=== PATIENT | male | born 1970 | race Caucasian/White ===

== ENCOUNTER 2016-12-27 20:07 | Inpatient (IN) | payer OTHER ==
[~2016-12-27] VITALS: Ht 180.3 cm; Wt 124.7 kg
[~2016-12-27 20:07] MED LIST: FLOMAX(MONOGRA0.4 MG PO; MOTRIN800 MG PO; PERCOCET 325 MG1 TA2 PO
--- NOTE | 2016-12-27 20:16 | NUR ---
PT TO ED FOR BILATERAL LEG PAIN S/P TWO DAYS AFTER A SPIN CLASS. REPORTING DARK URINE STARTING TODAY.
--- NOTE | 2016-12-27 20:19 | NUR ---
URINE TRIO SENT BY THIS [facility].
--- NOTE | 2016-12-27 20:20 | ED UPPER/LOWER EXTREMITY COMPL ---
History of Present Illness General Chief Complaint: Lower Extremity Problems Stated Complaint: BOTH LEGS PAIN Source: patient Exam Limitations: no limitations Vital Signs & Intake/Output Vital Signs & Intake/Output Vital Signs Date Time Temp Pulse Resp B/P B/P Pulse O2 O2 Flow FiO2 Mean Ox Delivery Rate 12/27 2222 97.0 92 18 144/93 96 Room Air 12/27 2010 98.0 110 18 157/98 100 Room Air Allergies Coded Allergies: No Known Allergies (10/24/15) Reconcile Medications No Known Home Medications Triage Note: PT TO ED FOR BILATERAL LEG PAIN S/P TWO DAYS AFTER A SPIN CLASS. REPORTING DARK URINE STARTING TODAY. Triage Nurses Notes Reviewed? yes Onset: Abrupt Duration: day(s): (2) Timing: multiple episodes today Severity: severe Pain/Injury Location: Bilateral: Knee. Method of Injury: SPIN CLASS Modifying Factors: Worsens With: movement. Associated Symptoms: stiffness HPI: 46-year-old male who presents to the ER for chief complaint of worsening bilateral leg pain since yesterday. 2 days ago he went to his first pain in class. He states he been doing the recumbent bike and wanted to try some different. After the class he felt pain in the legs which slowly got worse yesterday but today while walking he 6. Severe pain pain was significant enough that he couldn't bend down and put socks on. No chest pain or shortness of breath. This afternoon he noticed some dark urine at work. He states he increased his fluid intake to help light and of the urine. History of renal stones. Last lithotripsy was in July and the patient denies any abdominal pain or back pain consistent with kidney stones. Past History Travel History Traveled to [place] past 21 day No Medical History Any Pertinent Medical History? 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 No Review of Systems Review of Systems Constitutional: Denies: chills, fever. EENTM: Reports: no symptoms. Respiratory: Reports: no symptoms. Cardiovascular: Denies: chest pain. Gastrointestinal/Abdominal: Denies: abdominal pain, nausea, vomiting. Genitourinary: Reports: see HPI (DARK URINE). Musculoskeletal: Reports: muscle pain, muscle stiffness. Skin: Reports: no symptoms. Neurological/Psychological: Reports: no symptoms. Hematologic/Endocrine: Denies: bruising, bleeding, polyuria, polydipsia. Immunological: Denies: splenectomy. All Other Systems: Reviewed and Negative Physical Exam Physical Exam General Appearance: well developed/nourished, alert, awake, moderate distress Head: atraumatic Eyes: Bilateral: PERRL, EOMI. Ears, Nose, Throat: normal pharynx, normal ENT inspection, hearing grossly normal Neck: normal inspection, supple Cardiovascular/Respiratory: regular rate/rhythm Peripheral Pulses: 2+ radial (R), 2+ radial (L) Back: normal inspection Leg Left: normal range of motion, normal inspection, tenderness Leg Right: normal range of motion, normal inspection, tenderness Hip Left: normal range of motion, normal inspection Hip Right: normal range of motion, normal inspection Knee Left: normal range of motion, normal inspection Knee Right: normal range of motion, normal inspection Foot Left: normal inspection, normal range of motion Foot Right: normal inspection, normal range of motion Neurologic/Tendon: normal sensation, normal motor functions, normal tendon functions Skin: intact, normal color, warm/dry Lymphatic: no anterior cervical [place] Progress Differential Diagnosis: RHABDOMYOLYSIS, MUSCULOSKELETAL STRAIN Plan of Care: Orders Procedure Date/time Status Regular Diet 12/28 B Active BASIC ELECTROLYTES PLUS BUN&CR 12/28 0600 Active LACTIC ACID 12/28 0048 Active Pathway - chart 12/27 2242 Active House Staff 12/27 224 Active Code Status 12/27 224 Active Patient Data 12/27 2239 Active Admit to inpatient 12/27 221 Active Vital Signs 12/27 2214 Active Code Status 12/27 221 Complete Add-on Test (ER Only) 12/28 2147 Active LACTIC ACID 12/28 2147 Complete EKG 12/27 2144 Active Intake & Output 12/28 2111 Active PARTIAL THROMBOPLASTIN TIME 12/27 2054 Complete PROTHROMBIN TIME 12/27 2054 Complete COMPREHENSIVE METABOLIC PANEL 12/27 2016 Complete CREATINE PHOSPHOKINASE 12/27 2016 Complete CBC WITHOUT DIFFERENTIAL 12/27 2016 Complete CULTURE,URINE 12/27 2014 Active URINALYSIS 12/27 2014 Complete VTE Mechanical Prophylaxis 12/27 UNK Active Current Medications Sig/Jm Start time Last Medication Dose Stop Time Status Admin Sodium Chloride 1,000 ML BOLUS ONE 12/27 2300 UNVr (Normal Saline 0.9%) 12/27 2358 Acetaminophen 650 MG Q6P PRN 12/27 2244 UNVr (Tylenol) Acetaminophen/ 1 TAB Q6P PRN 12/27 2244 UNVr Hydrocodone Bitart (Vicodin) Morphine Sulfate 2 MG Q4P PRN 12/27 2244 UNVr (Morphine) Sodium Chloride 1,000 ML .Q8H 12/27 2244 UNVr (Normal Saline 0.9%) Heparin Sodium 5,000 UNIT Q8 12/27 2241 UNVr (Porcine) Laboratory Tests 12/27/162153: Lactic Acid 1.6 12/27/162054: Anion Gap 11, Estimated GFR 60, BUN/Creatinine Ratio 20.8, Glucose 104 H, Calcium 9.3, Total Bilirubin 0.7, AST 1133 H, ALT 317 H, Alkaline Phosphatase 99, Creatine Kinase > 82537 H, Total Protein 7.5, Albumin 4.4, Globulin 3.1, Albumin/Globulin Ratio 1.4, PT 10.9, INR 1.04, APTT 31, CBC w Diff NO MAN DIFF REQ, RBC 5.09, MCV 88.8, MCH 30.7, RDW 13.6, MPV 8.1, Gran % 76.8 H, Lymphocytes % 16.4 L, Monocytes % 4.8, Eosinophils % 1.8, Basophils % 0.2, Absolute Granulocytes 8.2 H, Absolute Lymphocytes 1.8, Absolute Monocytes 0.5, Absolute Eosinophils 0.2, Absolute Basophils 0, PUBS MCHC 34.6 12/27/162015: Urinalysis LIGHT H, Urine Color DULCE, Urine Clarity CLEAR, Urine pH 6.0, Ur Specific [place] 1.015, Urine Protein 100 H, Urine Ketones NEG, Urine Nitrite NEG, Urine Bilirubin NEG, Urine Urobilinogen 0.2, Ur Leukocyte Esterase TRACE H , Ur Microscopic SEDIMENT EXAMINED, Urine RBC 10-15 H, Urine WBC 3-5 H, Urine Crystals 1+ CA OX H, Urine Bacteria FEW H, Granular Casts 10-15 H, Micro UA Comment , Urine Hemoglobin LARGE H, Urine Glucose NEG Microbiology 12/28 2015 URINE ROUT: Urine Culture - RECD Initial ED EKG: SINUS TACHYCARDIA Departure Departure Time of Disposition: 2215 Disposition: STILL A PATIENT Condition: Stable Clinical Impression Primary Impression: Rhabdomyolysis Referrals: CARLA GROSS DO (PCP/Family) Departure Forms: Customer Survey General Discharge Information Prescriptions: Current Visit Scripts No Known Home Medications Admission Note Spoke With: NELSON CERVANTES,[facility] Documentation of Exam: Documentation of any treatments & extenuating circumstances including Concerns Regarding Discharge (functional status, medication knowledge or non-compliance, living conditions, etc.) that warrant an admission rather than observation: [IV FLUIDS, ]
--- NOTE | 2016-12-27 20:22 | NUR ---
PT TO ROOM 11, AWAITING PROVIDER EVALUATION
--- NOTE | 2016-12-27 20:33 | NUR ---
AT BEDSIDE FOR PT EVALUATION
--- NOTE | 2016-12-27 20:57 | NUR ---
CRITICAL TEST RESULTS [id number] ADDIE CHAVEZ 46 M TESTS AND RESULTS: URINE WBC HIGH Results received and read back by: JENNIFER LOERA Results received date and time: 12/27/162056 The following provider was notified of the results, and read the results back: Notified date and time: 12/27/16 at 2056
[2016-12-27 21:03] LABS: ABSOLUTE BASOPHIL COUNT 0 /CUMM (0.0-0.2); ABSOLUTE EOSINOPHIL COUNT 0.2 /CUMM (0.0-0.7); ABSOLUTE GRANULOCYTE CT 8.2 /CUMM (1.4-6.5); ABSOLUTE LYMPH COUNT 1.8 /CUMM (1.2-3.4); ABSOLUTE MONOCYTE COUNT 0.5 /CUMM (0.10-0.60); BASOPHIL % 0.2 % (0.0-2.0); EOSINOPHIL % 1.8 % (0-5); GRANULOCYTE % 76.8 % (42.2-75.2); HEMATOCRIT 45.2 % (42-52); MEAN CORPUSCULAR HGB 30.7 PG (27.0-31.0); MEAN CORPUSCULAR HGB CONC 34.6 G/DL (33.0-37.0); MEAN CORPUSCULAR VOLUME 88.8 FL (80.0-94.0); MEAN PLATELET VOLUME 8.1 FL (7.4-10.4); PLATELET COUNT 252 /CUMM (130-400); RBC DISTRIBUTION WIDTH 13.6 % (11.5-14.5); RED BLOOD CELL CT 5.09 /CUMM (4.70-6.10); WHITE BLOOD CELL COUNT 10.7 /CUMM (4.8-10.8)
[2016-12-27 22:03] LABS: PT 10.9 SEC (9.4-12.5); PTT 31 SEC (25-37)
--- NOTE | 2016-12-27 22:19 | NUR ---
PT RESTING COMFORTABLY ON STRETCHER AWAITING ADMISSION
--- NOTE | 2016-12-27 22:20 | NUR ---
IN TO [facility]EEVAL
--- NOTE | 2016-12-27 22:36 | NUR ---
HOUSE STAFF AT BEDSIDE TO ROBERT
--- NOTE | 2016-12-27 22:39 | History & Physical ---
JAMIL CERVANTES[place] [place] [facility] [place] 2238: General Information and HPI MD Statement: I have seen and personally examined ADDIE CORCORAN and documented this H&P. The patient is a 46 year old M who presented with a patient stated chief complaint of bilateral leg pain and dark urine. Source of Information: patient, family, old records Exam Limitations: no limitations History of Present Illness: Mr. Corcoran is a 46 y/o M with PMHx of nephrolithiasis s/p lithotripsy and multiple ureteral stent placements who presents with bilateral leg pain x2 days and dark urine. Two days prior to current presentation, patient had a spin class during which he had a 35 minute workout. The following day, he noted that his legs were achy. Today, he noted that his urine is dark in color. Patient reports that for the past several months leading up to current presentation, he has been fairly active, going to the gym a couple of times per week. Of note, he has had a red scaly rash on his bilateral knuckles for the past few years. He has been applying steroid cream without significant improvement. He denies fevers, chills , nausea, vomiting, abdominal pain or dysuria. He denies alcohol or recreational drug use. 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 Psychosocial History Where do you live? Home Smoking Status: Never Smoked ETOH Use: denies use Illicit Drug Use: denies illicit drug use Functional Ability ADLs Independent: dressing, eating, toileting, bathing. Ambulation: independent IADLs Independent: shopping, housework, finances, food prep, telephone, transportation , medication admin. Review of Systems Review of Systems Constitutional: Denies: chills, fever. EENTM: Reports: no symptoms. Cardiovascular: Reports: no symptoms. Respiratory: Denies: cough, short of breath. GI: Denies: abdominal pain, nausea, vomiting. Genitourinary: Reports: see HPI. Denies: dysuria. Musculoskeletal: Reports: muscle pain. Skin: Reports: no symptoms. Neurological/Psychological: Reports: no symptoms. Hematologic/Endocrine: Reports: no symptoms. Immunologic/Allergic: Reports: no symptoms. All Other Systems: Reviewed and Negative Exam & Diagnostic Data Last 24 Hrs of Vital Signs/I&O Vital Signs Date Time Temp Pulse Resp B/P B/P Pulse O2 O2 Flow FiO2 Mean Ox Delivery Rate 12/27 2222 97.0 92 18 144/93 96 Room Air 12/27 2010 98.0 110 18 157/98 100 Room Air Physical Exam General Appearance Alert, Oriented X3, No Acute Distress Skin Gottron's Papules, No Shawl Sign, No Heliotrope Rash HEENT Atraumatic, Mucous Membr. moist/pink Cardiovascular Regular Rate, Normal S1, Normal S2, No Murmurs, Gallops, Rubs Lungs Clear to Auscultation Abdomen Soft, No Tenderness, Positive Bowel Sounds Neurological Strength at 5/5 X4 Ext Extremities No Clubbing, No Cyanosis, No Edema Last 24 Hrs of Labs/Farhad: Laboratory Tests 12/27/162153: Lactic Acid 1.6 12/27/162054: Anion Gap 11, Estimated GFR 60, BUN/Creatinine Ratio 20.8, Glucose 104 H, Calcium 9.3, Total Bilirubin 0.7, AST 1133 H, ALT 317 H, Alkaline Phosphatase 99, Creatine Kinase > 07720 H, Total Protein 7.5, Albumin 4.4, Globulin 3.1, Albumin/Globulin Ratio 1.4, PT 10.9, INR 1.04, APTT 31, CBC w Diff NO MAN DIFF REQ, RBC 5.09, MCV 88.8, MCH 30.7, RDW 13.6, MPV 8.1, Gran % 76.8 H, Lymphocytes % 16.4 L, Monocytes % 4.8, Eosinophils % 1.8, Basophils % 0.2, Absolute Granulocytes 8.2 H, Absolute Lymphocytes 1.8, Absolute Monocytes 0.5, Absolute Eosinophils 0.2, Absolute Basophils 0, PUBS MCHC 34.6 12/27/16 2016: Methadone Screen Pending, Barbiturate Screen Pending, Ur Phencyclidine Scrn Pending, Amphetamines Screen Pending, U Benzodiazepines Scrn Pending, Urine Cocaine Screen Pending, Urine Cannabis Screen Pending, Urinalysis LIGHT H, Urine Color DULCE, Urine Clarity CLEAR, Urine pH 6.0, Ur Specific [place] 1.015, Urine Protein 100 H, Urine Ketones NEG, Urine Nitrite NEG, Urine Bilirubin NEG, Urine Urobilinogen 0.2, Ur Leukocyte Esterase TRACE H, Ur Microscopic SEDIMENT EXAMINED, Urine RBC 10-15 H, Urine WBC 3-5 H, Urine Crystals 1+ CA OX H, Urine Bacteria FEW H, Granular Casts 10-15 H, Micro UA Comment , Urine Hemoglobin LARGE H, Urine Glucose NEG Microbiology 12/28 2015 URINE ROUT: Urine Culture - RECD Assessment/Plan Assessment: 46 y/o M with PMHx of nephrolithiasis s/p lithotripsy and multiple ureteral stent placements who presents with bilateral leg pain x2 days and dark urine. 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 CK elevated to >51124 on initial presentation. Underlying etiology could be dermatomyositis in the presence of Gottron's papules, however no shawl sign or heliotrope rash present on exam. * Admit to general medicine. * Administer 1 L bolus of normal saline. * Hydrate with NS @ 150 cc/hr. * Check urine toxicology. * Check LDH, uric acid and phosphate in the setting of rhabdomyolysis. * Check ESR. * Recheck CK in the AM. * Provide rheumatology referral for workup of dermatomyositis on discharge. #Transaminitis: AST 1133, ALT 317 on admission. Likely secondary to rhabdomyolysis. Patient denies drinking alcohol. * Trend LFTs. * Check GGT. #LEONA: Creatinine 1.3 on admission, increased from baseline of 1.0. Likely secondary to rhabdomyolysis. * Hydrate with normal saline @ 125 cc/hr. * Repeat BMP in the morning. * Avoid NSAIDS. #Anxiety: * Hydroxyzine 10 mg PO QID PRN. Diet: Regular Pain: Morphine 2 mg IV Q4H PRN for severe pain (scale 7-10) Vicodin 1 tab PO Q12H PRN for moderate pain (scale 4-6) Tylenol 650 mg PO Q12H PRN for mild pain (scale 1-3) DVT PPx: HSQ and ALPs CODE: FULL As Ranked By This Provider Problem List: 1. Rhabdomyolysis 2. Dermatomyositis 3. Transaminitis 4. LEONA (acute kidney injury) 5. Anxiety Core Measures/Miscellaneous Acute Coronary Syndrome ACS Diagnosis: No Cerebrovascular Accident CVA/TIA Diagnosis: No Congestive Heart Failure CHF Diagnosis: No Venous Thromboembolism VTE Risk Factors: Acute medical illness, Age > 40, Obesity No [facility] VTE prophylaxis d/t: No contraindications No VTE Pharm Prophylaxis d/t: No contraindications VTE Diagnosis: No VTE Type: NONE VTE Confirmed by (Test): NONE Severe Sepsis Severe Sepsis Present: No Septic Shock Septic Shock Present: No Miscellaneous Documentation Attending [facility] Primary Care Physician: CARLA GROSS DO Patient sees these Specialists N/A Level of Patient Care: General Medicine STEPHANY MONIQUE 12/27/16 2331: General Information and HPI MD Statement: I have seen and personally examined ADDIE CORCORAN and documented this H&P. The patient is a 46 year old M who presented with a patient stated chief complaint of [muscle pain]. Assessment/Plan As Ranked By This Provider Problem List: 1. Rhabdomyolysis Resident Review Statement Resident Statement: examined this patient, discussed with diversity intern, agreed with diversity intern, discussed with family, reviewed EMR data (avail), discussed with nursing , discussed with case mgmt, reviewed images, amended to note Other Findings: 46-year-old gentleman presented with complaint of lower extremity muscles pain. According to patient following 30 minutes of dynamic exercise 2 days ago he started feeling pain and soreness in his both legs(proximal lower extremities). Over time his pain and muscle swelling worsened and patient also noticed darkening of his urine. Patient denied any trauma, new medication, nausea vomiting diarrhea, previous similar episodes,skin rash, drug use, family history of similar episodes. ROS: muscle ache ; PH/ex: HEET: unremarkable, Chest: Normal, S1S2 no murmur, Extremities: Gotron rash, on both hands. Pertinent data AST 1133, ALT 317, CK more than 32,000, troponin negative, potassium 3.9, sodium 138, BUN 27, creatinine 1.3. EKG: Normal sinus rate and rhythm, no acute ST-T segment change, normal axis, no QT, CT, QRS change. Urine Tox: ESR: List of active problems #1 rhabdomyolysis persumebly due to inflammatory mypathies on clinical exam ( dermatomyocytis). metabolite myopathy. The prescence of Gotron Rash and myopathy and Rhabdo is suggestive of dermatomyocytis/polymyocytis. Exercise induced rhabdomyolysis (30 minutes of dynamic training) more suggestive of metabolic myopathy. With the presence of dynamic symptoms including exercise intolerance and myoglobinuria. Metabolic myopathies are sub-divided to mitrochondrial, lipid metabolism defect, glycolytic/glycogenolytic, possible RYR1 mutation, and possible aldolase A or aldolase-1 deficiency. Other potential causes of rhabdomyolysis with lower probability in this patient : Hyperthermia and dehydration( not justifiable with intensity of the exercise), medication(patient is not on any medication that could possibly cause rhabdomyolysis), trauma (no history of trauma). Endocrine myopaties are also need to be ruled out including hypothyroidism and DM. * Admit to general medical floor * Continue IV hydration with normal saline 150 mL per hour * ESR, Phosphate, and Uric Acid, LDH * BEP and LFT, CK, in the am * Rheumatology consult in the am as an outpatient; possible anti-Jo1 Ab and muscle biopsy * Assess biochemical muscle enzymes- LFT and CK in the am * Urine Tox * Folllow TSH and free T4 amd HBA1 C; r/o hypothyroidism and DM #2 Elevated creatinine without renal failure: Possibly due to rhabdomyolysis and myoglobinuria. * Continue IV hydration * Repeat labs in the a.m. Pain pathway-mild to moderate and severe, avoid NSAIDs DVT prophylaxis-heparin 5000 units every 8 hours Full code NELSON CERVANTES, [facility] 12/28/16 0259: Attending MD Review Statement Attending Statement Attending MD Statement: examined this patient, discuss w/resident/PA/YEAST PUMPER, agreed w/resident/PA/YEAST PUMPER, discussed with family Attending Assessment/Plan: 46 yo morbidly obese M with h/o nephrolithiasis s/p lithotripsy and stent placement (Jul 2016), pw bilateral lower extremity pain (both thighs) for the past 2 days, after he did a 35 minute spinning class on Sunday (December 25). He reports, he generally does the stationary bike for exercise, but this is the first time he tried spinning, and did not keep himself adequately hydrated. Today the pain was worse with inability to walk or bend while at work. He also noted dark urine. He denies chest pain, dyspnea, palpitations, nausea, vomiting, abdominal pain, diarrhea or urinary frequency/dysuria. He reports feeling anxious to stay in the hospital overnight, he has a cat at home but someone will take care of the cat. Vitals stable except for tachycardia. Exam remarkable for ?gottron's papules on both hands. Labs: BUN 27, creat 1.3 (baseline 1.0), INR 1.04, glucose 104, T.bili 0.7, AST 1133, ALT 317, lactic acid 1.6, CK > 41638. UA trace LE, RBC 10- 15, WBC 3-5, granular and WBC casts+. EKG: Sinus tachycardia. 1. Acute nontraumatic exertional rhabdomyolysis, with associated LEONA and transaminitis. GM admit, aggressive IV hydration, after 2-3 L fluid boluses, trend CK, LFTs and renal functions, avoid NSAIDs. Check uric acid levels. Monitor electrolytes calcium, potassium and phosphorus. Check urine tox screen. 2. Possible underlying dermatomyositis. Needs outpatient rheumatology eval. 3. Anxiety. Hydroxyzine as needed. DVT ppx Hep SC. Full code.
--- NOTE | 2016-12-27 22:50 | NUR ---
PT BED ASSIGNMENT 210-1
--- NOTE | 2016-12-27 22:52 | NUR ---
PER PT WILL RECIEVE 2ND LITER NS BOLUS AND THEN 125ML/HR LITER PER ORDER.
--- NOTE | 2016-12-27 22:54 | Admission Certification ---
Admission Certification Certification Statement - As attending physician, I certify that at the time of - admission, based on clinical presentation, severity of - symptoms, need for further diagnostic testing and - therapeutic interventions, and risk of adverse outcomes - without in-hospital treatment, in my clinical assessment, - this patient requires an acute hospital stay for a minimum - of two nights or longer. I have also considered psychsocial - factors such as support system, advanced age, financial - issues, cognitive issues, and failed out-patient treatments, - past re-admission history, safety of patient, and lack of - compliance as applicable. Specific rationale supporting this admission is: Acute nontraumatic exertional rhabdomyolysis, acute kidney injury and transaminitis.
--- NOTE | 2016-12-27 23:39 | NUR ---
REPORT GIVEN TO VICKY VILLARREAL
[2016-12-28 00:34] VITALS: BP 160/102
[2016-12-28 01:00] VITALS: BP 152/90
[2016-12-28 06:49] VITALS: BP 132/98
--- NOTE | 2016-12-28 06:59 | PN- Housestaff ---
LAURYN CERVANTES,FIORELLA 12/28/16 0659: Subjective Follow-up For: Bilateral leg pain and dark urine Complaints: anxious about current events Subjective: I followed up with the patient today. He is resting comfortably in his bed, is alert, oriented, not in distress, verified the history, doesn't take any medications other than vitamin supplements, discussed the current events and plan of care, and had no questions at this point of time. His blood pressure has been running slightly on the higher side, otherwise normal vitals. No overnight events. He has been drinking water, and also urinating with unchanged colored urine (ice -tea colored). Of note IV fluid is running at 150 ml per hour. Review of Systems Constitutional: Reports: see HPI. Objective Last 24 Hrs of Vital Signs/I&O Vital Signs Date Time Temp Pulse Resp B/P B/P Pulse O2 O2 Flow FiO2 Mean Ox Delivery Rate 12/28 0649 98.2 91 20 132/98 97 Room Air 12/28 0100 98 152/90 12/28 0034 99.3 100 18 160/102 96 Room Air 12/27 2223 97.0 92 18 144/93 96 Room Air 12/27 2010 98.0 110 18 157/98 100 Room Air Intake & Output 12/28 1600 12/28 0800 12/28 0000 Intake Total 1560 0 Output Total 1300 Balance 260 0 Intake, IV 1200 Intake, Oral 360 0 Output, Urine 1300 Patient 124.738 kg Weight Weight Reported by Patient Measurement Method Physical Exam General Appearance: Alert, Oriented X3, Cooperative, No Acute Distress, obese Other Physical Findings: Physical examnination: General: well nourished obese patient, not in distress Head: Normocephalic, atraumatic Eyes: Pupils normal in size, regular, reacting to light and accommodation, EOM normal Throat/mouth: Moist mucosa Neck: Supple, full range of motion, no thyromegaly Heart: Regular rate, regular rhythm Lung: Normal breath sound bilaterally, Added sound not heard Abd: Soft, non-tender, no distention appreciated Back: Normal range of motion Extremities: Normal knee exam bilaterally, no pedal edema, Distal neurovascular intact Neurologic: Alert, oriented x3, Cranial exam grossly intact, Speech is clear and coherent Skin: Warm and dry, no rash Psychiatric: Calm, cooperative, coherant Current Medications: Current Medications Sig/Jm Start time Last Medication Dose Route Stop Time Status Admin Acetaminophen 650 MG Q12P PRN 12/28 0030 AC PO Acetaminophen 650 MG Q6P PRN 12/27 2244 DC PO Acetaminophen/ 1 TAB Q12P PRN 12/28 003 DC Hydrocodone Bitart PO Acetaminophen/ 1 TAB Q6P PRN 12/27 2244 DC Hydrocodone Bitart PO Heparin Sodium 0 .STK-MED ONE 12/27 230 DC (Porcine) .ROUTE Heparin Sodium 5,000 UNIT Q8 12/27 2241 AC 12/28 (Porcine) SC 0552 Hydroxyzine HCl 10 MG 4 TIMES/DAY PRN 12/28 0315 AC PO Hydroxyzine HCl 10 MG ONCE ONE 12/28 0030 DC 12/28 PO 12/28 003 0036 Melatonin 5 MG .STK-MED ONE 12/28 003 DC PO 12/28 0035 Melatonin 3 MG ONCE ONE 12/280 DC 12/28 PO 12/28 0031 0036 Morphine Sulfate 2 MG Q4P PRN 12/27 2244 AC IV Oxycodone HCl 5 MG Q6-PRN PRN 12/28 0945 UNVr PO Sodium Chloride 1,000 ML BOLUS ONE 12/27 2299 DC 12/27 IV 12/27 2359 2304 Sodium Chloride 1,000 ML .Q4H 12/27 2244 AC 12/28 IV 0552 Sodium Chloride 1,000 ML BOLUS ONE 12/27 2144 DC 12/27 IV 12/27 Last 24 Hrs of Lab/Farhad Results Last 24 Hrs of Labs/Mics: Laboratory Tests 12/28/16 0754: Anion Gap 9, Estimated GFR > 60, BUN/Creatinine Ratio 14.5, Total Bilirubin 0.8, Direct Bilirubin 0.2, AST 1129 H, ALT 325 H, Alkaline Phosphatase 72, Creatine Kinase > 15360 H, Total Protein 6.0 L, Albumin 3.4 L 12/28/16 0048: Lactic Acid Cancelled 12/27/162153: Lactic Acid 1.6 12/27/162054: Anion Gap 11, Estimated GFR 60, BUN/Creatinine Ratio 20.8, Glucose 104 H, Hemoglobin A1c 5.4, Uric Acid 8.0, Calcium 9.3, Phosphorus 4.6 H, Total Bilirubin 0.7, GGT 21, AST 1133 H, ALT 317 H, Alkaline Phosphatase 99, Lactate Dehydrogenase 6542 H, Creatine Kinase > 05118 H, Total Protein 7.5, Albumin 4.4, Globulin 3.1, Albumin/Globulin Ratio 1.4, TSH 2.200, Free T4 1.41, PT 10.9, INR 1.04, APTT 31, CBC w Diff NO MAN DIFF REQ, RBC 5.09, MCV 88.8, MCH 30.7, RDW 13.6, MPV 8.1, Gran % 76.8 H, Lymphocytes % 16.4 L, Monocytes % 4.8, Eosinophils % 1.8, Basophils % 0.2, Absolute Granulocytes 8.2 H, Absolute Lymphocytes 1.8, Absolute Monocytes 0.5, Absolute Eosinophils 0.2, Absolute Basophils 0, PUBS MCHC 34.6, ESR Westergren 18 H 12/27/162015: Urine Opiates Screen < 100.00, Methadone Screen < 40, Barbiturate Screen < 60, Ur Phencyclidine Scrn < 6.00, Amphetamines Screen < 100, U Benzodiazepines Scrn < 85, Urine Cocaine Screen < 50, Urine Cannabis Screen < 5.00, Urinalysis LIGHT H, Urine Color DULCE, Urine Clarity CLEAR, Urine pH 6.0, Ur Specific [place] 1.015, Urine Protein 100 H, Urine Ketones NEG, Urine Nitrite NEG, Urine Bilirubin NEG, Urine Urobilinogen 0.2, Ur Leukocyte Esterase TRACE H, Ur Microscopic SEDIMENT EXAMINED, Urine RBC 10-15 H, Urine WBC 3-5 H, Urine Crystals 1+ [place] OX H, Urine Bacteria FEW H, Granular Casts 10-15 H, Micro UA Comment , Urine Hemoglobin LARGE H, Urine Glucose NEG Microbiology 12/28 2015 URINE ROUT: Urine Culture - RES Assessment/Plan Assessment: 46-year-old male with no past medical history other than bilateral renal stones status post surgery last year, came into the emergency department with bilateral lower extremity pain and dark colored urine on 12/27/2016 after a spinning/heavy workout session. In the ED, he was found to be having dark-colored urine with RBCs in urine, increase in BUN/creatinine being 27/1.3, and CK of >32,000. His CBC was normal and a tox screen was normal as well. With the clinical picture, laboratory reports a provisional diagnosis of rhabdomyolysis was made. He is currently admitted in the general medical floor for the following issues: #Acute kidney injury, secondary to rhabdomyolysis -Given the clinical condition, increase BUN and creatinine of 27/1.3 with unknown baseline, and her creatine kinase level of more than 32,000, the patient clearly has rhabdomyolysis. He received 2 L of normal saline in the emergency department, and night staff/admitting continued IV fluids infusing at 150 mL per hour. This morning's biochemistry and has returned better numbers after hydration with BUN/creatinine at 16/1.1, creatinine kinase still greater than 32 ,000. -Continue monitoring vitals every shift, and as needed -Continue IV hydration, increased rate from 150 mL per hour to 250 mL per hour -Increase oral fluid intake -Continue rechecking BEP, CK -Avoid nephrotoxic drugs -Avoid sternous exercise for now Of note, patient has bilateral lesions over his knuckles, which somewhat looks like dermatomyositis. This can be followed up as an outpatient with her enterprise sales executive. #Transaminitis Initial AST/ALT were 1133/6317, unknown whether this is secondary to rhabdomyolysis. -Trend LFTs, this morning's AST/ALT is 1129/325, better than the previous one [facility], but [facility] is normal and he hasn't had any alcohol since past few (5) years -Will follow #Anxiety -Hydroxyzine 10 mg as needed #Diet regular #DVT prophylaxis with subcutaneous heparin #CODE STATUS full code Problem List: 1. Rhabdomyolysis 2. Transaminitis 3. Anxiety 4. LEONA (acute kidney injury) Pain Ratin Pain Location: - Pain Goal: Pain 4 or less Pain Plan: tylenol and oxycodone for now DC'ed vicodine Tomorrow's Labs & Rationales: CK, LFT, BEP, CBC to follow rhabdomyoloysis, liver status, lytes repletion, and trace the rhabdo.- inflammation. XIN JACKSON MD 12/28/16 1143: Attending MD Review Statement Attending Statement Attending MD Statement: examined this patient, discuss w/resident/PA/STATE MANAGER, agreed w/resident/PA/STATE MANAGER, reviewed EMR data (avail), discussed with nursing, discussed with case mgmt, amended to note Attending Assessment/Plan: Patient seen and examined. Resting comfortably not in any acute distress. Complains of tight cramping. Denies nausea. Denies vomiting. Remains afebrile hemodynamically stable. It appears that his rhabdomyolysis was brought on by his intense exercise. We'll continue hydration aggressively. Increase fluids to 250 mL an hour. Monitor l urine output closely. Monitor CK levels daily. Begin discharge planning once CPK level has improved significantly.
--- NOTE | 2016-12-28 07:17 | PN- Student ---
Subjective Subjective: Source: patient, who is a reliable historian. History of Present Illness: This 46 year-old male with a past medical history of nephrolithiasis s/p lithotripsy and multiple ureteral stent placements who presented to the [facility] ED 12/27/16 with a chief complaint of worsening lower extremity pain bilaterally for 2 days. Pain began after a exercise at a bicycle spin class, and progressively worsened to the point where he could not bend down to put socks on. Patient describes pain as a muscle pain with tenderness. Patient can walk, but states that there is leg pain when walking. Pain is located in the upper medial and lateral thigh region bilaterally. Notes no radiation of pain. Patient took naproxen and oxycodone for pain, which did not help pain (patient had leftover oxycodone from last renal stone). Lower extremity pain is associated with dark-colored urine, which began on day of ED admission. Review of Systems: -Patient denies fevers, chills, chest pain, shortness of breath, abdominal pain, back pain, dysuria. leg swelling. -Denies medication use, illicit drug use, recent trauma. Past Medical History: -Nephrolithiasis s/p lithotripsy and multiple ureteral stent placements. -Dry, scaly skin over knuckles of bilateral hands. Allergies: No known drug allergies. Medications: -Steroid cream prescribed by PCP (Dr. Kenney in [place]), which he uses as needed for dry, scaly skin on knuckles, which he notes helps. -Daily multivitamin. -Denies any other medication use. Family History: -Mother: Type II diabetes. -Maternal grandmother: Type II diabetes. Has , patient does not know cause of . -Patient denies any other family medical history, illnesses, or disorders. Social History: -Denies history of tobacco smoking. -Denies alcohol use. -Denies illicit drug use. 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 Objective Objective: Vitals on ED admission: Vital Signs Date Time Temp Pulse Resp B/P B/P Pulse O2 O2 Flow FiO2 Mean Ox Delivery Rate 12/28 0649 98.2 91 20 132/98 97 Room Air 12/28 0100 98 152/90 12/28 0034 99.3 100 18 160/102 96 Room Air 12/27 2223 97.0 92 18 144/93 96 Room Air 12/27 2010 98.0 110 18 157/98 100 Room Air Patient admitted to general medicine floor: -Given 1L bolus normal saline -Given hydroxyzine 10mg for anxiousness -Given melatonin 3mg for sleep Physical Exam: -General: alert, oriented x3, slightly anxious-appearing, in no acute distress -Head: atraumatic, normocephalic -Eyes: PERRL, EOMI -Mouth: moist mucous membranes, oropharynx without erythema or exudate -Cardiovascular: regular rate and rhythm, S1, S2, no murmurs, rubs, or gallops -Lungs: clear to auscultation bilaterally, good air entry throughout -Abdomen: soft, non-tender, no masses, positive bowel sounds -Back: no CVA tenderness -Extremities: very mild tenderness on palpation of upper thighs bilaterally, no swelling, no clubbing, cyanosis, edema -Neurological: 5/5 strength in all extremities -Skin: dry, scaly skin over knuckles on hands bilaterally, no other rashes present -On IV fluids: normal saline 150cc/hr. Results Results: Pertinent labs on admission: -AST 1133, ALT 317 -Lactate dehydrogenase 6542 -Creatine kinase >32,000 -BUN 27, creatinine 1.3 -Urine toxicology screen: negative UA: high urine proteins, trace leukocyte esterase, high RBCs, high WBCs, granular casts EKG: sinus tachycardia Assessment/Plan Assessment: This is a 46 year-old male with PMH of nephrolithiasis s/p lithotripsy and multiple ureteral stent placements who presented to ED on 12/27/16 with a chief complaint of worsening leg pain bilaterally x2 days and dark urine x1 day. In the ED, patient had AST 1133, ALT 317, lactate dehydrogenase 6542, creatine kinase >32,000, BUN 27, creatinine 1.3. Patient currently states he is doing okay and notes leg pain bilaterally with ambulation. Differential Diagnosis: 1. Rhabdomyolysis: muscle pain, creatine kinase >32,000, and dark urine are all present in this patient. Other manifestations of rhabdomyolysis include hepatic injury, and patient has AST 1133, ALT 317. Patient also has evidence of acute kidney injury with creatinine 1.3 mg/dL. This event could have been triggered by strenous exercise from spin class. Patient denies medication use, illlicit drug use, or trauma/crushing injury. 2. Inflammatory myopathy: patient could have possible myopathy (such as dermatomyositis). Patient has dry, scaly rash on skin of knuckles of hands bilaterally, which could represent Gottron's papules. Inflammatory myopathies can also present with elevated creatine kinase, dark colored urine ( myoglobinuria), and myalgias. However, patient denies any rashes such as a shawl sign or heliotrope rash. Additionally, inflammatory myopathies present with symmetric proximal muscle weakness that develops over weeks to months, while rhabdomyolysis presents abruptly, as it did in this patient. Patient could have rhabdomyolysis with an underlying etiology of an inflammatory myopathy. 3. Cardiac ischemia: although serum creatine kinase rises with a myocardial infarction, patient denies chest pain, and EKG only showed sinus tachycardia. Cardiac ischemic event less likely. Plan: For bilateral upper leg pain: -Patient admitted to general medicine floor with suspected diagnosis of rhabdomyolysis. -Avoids NSAIDs. -Trend LFTs, BMP, creatine kinase. For pain: -Morphine 2mg IV Q4H PRN for severe pain (scale 7-10). -Oxycodone 5mg PO Q6H PRN for moderate pain (scale 4-6). -Acetaminophen 650mg PO Q12H PRN for mild pain (scale 1-3). For acute kidney injury: -Patient given 1L bolus of normal saline. -IV fluids currently at 150cc/hr. Will increase to 250cc/hr. -Trend BMP. -Encourage oral fluid intake. For scaly, dry knuckles on hands bilaterally: -Hydrocortisone cream as needed. -Return to PCP/possible rheumatology referral for further workup on discharge. For anxiety: -Hydroxyzine 10mg PO QID PRN. DVT prophylaxis: -Heparin 5,000 units SC Q8H Diet: regular Francisco Mcdowell MS3
[2016-12-28 15:04] VITALS: BP 140/86
[2016-12-28 22:34] VITALS: BP 132/73
--- NOTE | 2016-12-29 07:02 | PN- Housestaff ---
LAURYN CERVANTES,FIORELLA 12/29/16 0702: Subjective Follow-up For: Bilateral leg pain and dark urine, secondary to rhabdomyolysis Complaints: no complaints Subjective: I followed up and examined the patient today. He is resting comfortably in his bed, not in distress, and offers no complaints, vitals have been stable, no overnight issues. IV fluids as running at 250 mL per hour, patient has no shortness of breath, tachycardia, tachypnea, swelling of legs, and is urinating regularly without problems. Review of Systems Constitutional: Reports: no symptoms. Objective Last 24 Hrs of Vital Signs/I&O Vital Signs Date Time Temp Pulse Resp B/P B/P Pulse O2 O2 Flow FiO2 Mean Ox Delivery Rate 12/29 0742 98.2 90 20 136/97 100 Room Air 12/28 2234 98.4 90 20 132/73 97 Room Air 12/28 1504 97.4 95 20 140/86 96 Room Air Intake & Output 12/29 1600 12/29 0800 12/29 0000 Intake Total 2480 2600 Output Total 750 1350 Balance 1730 1250 Intake, IV 2000 2000 Intake, Oral 480 600 Number 1 Bowel Movements Output, Urine 750 1350 Physical Exam General Appearance: Alert, Oriented X3, Cooperative, No Acute Distress Other Physical Findings: General: well nourished obese patient, not in distress Head: Normocephalic, atraumatic Eyes: Pupils normal in size, regular, reacting to light and accommodation, EOM normal Throat/mouth: Moist mucosa Neck: Supple, full range of motion, no thyromegaly Heart: Regular rate, regular rhythm Lung: Normal breath sound bilaterally, Added sound not heard Abd: Soft, non-tender, no distention appreciated Back: Normal range of motion Extremities: Normal knee exam bilaterally, no pedal edema, Distal neurovascular intact Neurologic: Alert, oriented x3, Cranial exam grossly intact, Speech is clear and coherent Skin: Warm and dry, no rash Psychiatric: Calm, cooperative, coherant Current Medications: Current Medications Sig/Jm Start time Last Medication Dose Route Stop Time Status Admin Acetaminophen 650 MG Q12P PRN 12/28 0030 DC PO Acetaminophen/ 1 TAB Q12P PRN 12/28 003 DC Hydrocodone Bitart PO Heparin Sodium 5,000 UNIT Q8 12/27 2242 AC 12/29 (Porcine) SC 0655 Hydroxyzine HCl 10 MG 4 TIMES/DAY PRN 12/28 0315 AC 12/28 PO 2116 Melatonin 3 MG ONCE ONE 12/28 2114 DC 12/28 PO 12/28 Morphine Sulfate 2 MG Q4P PRN 12/27 2244 AC IV Oxycodone HCl 5 MG Q6-PRN PRN 12/28 0945 AC PO Sodium Chloride 1,000 ML .Q4H 12/27 224 AC 12/29 IV 0654 Last 24 Hrs of Lab/Farhad Results Last 24 Hrs of Labs/Mics: Laboratory Tests 12/29/16 0708: Anion Gap 8, Estimated GFR > 60, BUN/Creatinine Ratio 10.0, Total Bilirubin 0.7, Direct Bilirubin 0.2, AST 905 H, ALT 335 H, Alkaline Phosphatase 68, Creatine Kinase Pending, Total Protein 5.9 L, Albumin 3.3 L Assessment/Plan Assessment: 46-year-old male with no past medical history other than bilateral renal stones status post surgery last year, came into the emergency department with bilateral lower extremity pain and dark colored urine on 12/27/2016 after a spinning/heavy workout session. In the ED, he was found to be having dark-colored urine with RBCs in urine, increase in BUN/creatinine being 27/1.3, and CK of >32,000. His CBC was normal and a tox screen was normal as well. With the clinical picture, laboratory reports a provisional diagnosis of rhabdomyolysis was made. He is currently admitted in the general medical floor for the following issues: #Acute kidney injury, secondary to rhabdomyolysis -Given the clinical condition, increase BUN and creatinine of 27/1.3 with unknown baseline, and her creatine kinase level of more than 32,000, the patient clearly has rhabdomyolysis. He received 2 L of normal saline in the emergency department, and is receiving IV fluids at 250 mL per hour without any signs of fluid overload. His numbers this morning is with BUN 9 and creatinine 0.9, creatinine kinase is still more than 32,000. Of note the machine in the laboratory detects creatinine kinase up to 32,000 only. Further quantification can be done by dilution method. A rough estimate of decrease of 33% of creatine kinase in the last sample when compared to the first sample was informed to me by lab staff today. Will wait for tomorrow's labs. -Continue monitoring vitals every shift, and as needed -Continue IV hydration, at 250 mL per hour -Increase oral fluid intake -Continue rechecking BEP, CK -Avoid nephrotoxic drugs -Avoid sternous exercise for now Of note, patient has bilateral lesions over his knuckles, which somewhat looks like dermatomyositis. This can be followed up as an outpatient with her sanitation truck driver. #Transaminitis Initial AST/ALT were 1133/6317, unknown whether this is secondary to rhabdomyolysis. -Trend LFTs, this morning's AST/ALT is 905/335, better than the previous one -Might check GGT later, but the ALP is normal and he hasn't had any alcohol since past few (5) years -Will follow #Anxiety -Hydroxyzine 10 mg as needed #Diet regular #DVT prophylaxis with subcutaneous heparin #CODE STATUS full code Problem List: 1. Rhabdomyolysis 2. LEONA (acute kidney injury) 3. Dehydration syndrome Pain Ratin Pain Location: - Pain Goal: Pain 4 or less Pain Plan: prn Tomorrow's Labs & Rationales: BEP to replete lytes if necessary, CK, discharge dependant labs is CK XIN JACKSON MD 12/29/16 1209: Attending MD Review Statement Attending Statement Attending MD Statement: examined this patient, discuss w/resident/PA/ROLL INSPECTOR, agreed w/resident/PA/ROLL INSPECTOR, reviewed EMR data (avail), discussed with nursing, discussed with case mgmt, amended to note Attending Assessment/Plan: Patient seen and examined. Resting comfortably not in any acute distress. No issues overnight. Denies leg cramping this morning. Denies nausea vomiting. Ambulating freely around the unit. CPK level remains greater than 32,000. His creatinine level has improved. Recommendations: -Continue IV hydration at 250 mL an hour. -His elevated transaminases are improving. Likely related to his elevated CPK level. Obtain right upper quadrant sonogram to rule out coexisting liver disease. -Avoid hepatotoxic medications. Tylenol has been discontinued -Repeat CPK level and transaminases over the weekend. Monitor renal function.
[2016-12-29 07:42] VITALS: BP 136/97
--- NOTE | 2016-12-29 08:34 | PN- Student ---
Subjective Subjective: Doing well today overall, notes mild left lower abdominal soreness at heparin injection site. Denies fevers, chills, chest pain, shortness of breath, back back, leg pain, dysuria. Current Medications Sig/Jm Start time Last Medication Dose Route Stop Time Status Admin Acetaminophen 650 MG Q12P PRN 12/28 0030 DC PO Acetaminophen/ 1 TAB Q12P PRN 12/28 0030 DC Hydrocodone Bitart PO Heparin Sodium 5,000 UNIT Q8 12/27 224 AC 12/29 (Porcine) SC 0655 Hydroxyzine HCl 10 MG 4 TIMES/DAY PRN 12/28 0315 AC 12/28 PO 2116 Melatonin 3 MG ONCE ONE 12/28 2114 DC 12/28 PO 12/28 Morphine Sulfate 2 MG Q4P PRN 12/27 2244 AC IV Oxycodone HCl 5 MG Q6-PRN PRN 12/28 0945 AC PO Sodium Chloride 1,000 ML .Q4H 12/27 2244 AC 12/29 IV 0654 Objective Objective: Vital Signs Date Time Temp Pulse Resp B/P B/P Pulse O2 O2 Flow FiO2 Mean Ox Delivery Rate 12/29 0742 98.2 90 20 136/97 100 Room Air 12/28 2234 98.4 90 20 132/73 97 Room Air 12/28 1504 97.4 95 20 140/86 96 Room Air Intake & Output 12/29 1600 12/29 0800 12/29 0000 Intake Total 2480 2600 Output Total 750 1350 Balance 1730 1250 Intake, IV 2000 2000 Intake, Oral 480 600 Number 1 Bowel Movements Output, Urine 750 1350 Physical Exam: General: alert, oriented x3, in no acute distress Cardiovascular: regular rate and rhythm, S1, S2, no murmurs, rubs, or gallops Lungs: clear to auscultation bilaterally, good air entry throughout Abdomen: soft, mild tenderness in left lower quadrant at heparin injection site , no masses Back: no CVA tenderness Extremities: no tenderness on palpation of lower extremities; no clubbing, cyanosis, edema On IV fluids: normal saline 250cc/hr Results Results: Laboratory Tests 12/29/16 0708: Anion Gap 8, Estimated GFR > 60, BUN/Creatinine Ratio 10.0, Total Bilirubin 0.7, Direct Bilirubin 0.2, AST 905 H, ALT 335 H, Alkaline Phosphatase 68, Creatine Kinase > 56322 H, Total Protein 5.9 L, Albumin 3.3 L 12/28/16 0754: Anion Gap 9, Estimated GFR > 60, BUN/Creatinine Ratio 14.5, Total Bilirubin 0.8, Direct Bilirubin 0.2, AST 1129 H, ALT 325 H, Alkaline Phosphatase 72, Creatine Kinase > 65255 H, Total Protein 6.0 L, Albumin 3.4 L 12/28/16 0048: Lactic Acid Cancelled 12/27/162153: Lactic Acid 1.6 12/27/162054: Anion Gap 11, Estimated GFR 60, BUN/Creatinine Ratio 20.8, Glucose 104 H, Hemoglobin A1c 5.4, Uric Acid 8.0, Calcium 9.3, Phosphorus 4.6 H, Total Bilirubin 0.7, GGT 21, AST 1133 H, ALT 317 H, Alkaline Phosphatase 99, Lactate Dehydrogenase 6542 H, Creatine Kinase > 79953 H, Total Protein 7.5, Albumin 4.4, Globulin 3.1, Albumin/Globulin Ratio 1.4, TSH 2.200, Free T4 1.41, PT 10.9, INR 1.04, APTT 31, CBC w Diff NO MAN DIFF REQ, RBC 5.09, MCV 88.8, MCH 30.7, RDW 13.6, MPV 8.1, Gran % 76.8 H, Lymphocytes % 16.4 L, Monocytes % 4.8, Eosinophils % 1.8, Basophils % 0.2, Absolute Granulocytes 8.2 H, Absolute Lymphocytes 1.8, Absolute Monocytes 0.5, Absolute Eosinophils 0.2, Absolute Basophils 0, PUBS MCHC 34.6, ESR Westergren 18 H 12/27/16 2016: Urine Opiates Screen < 100.00, Methadone Screen < 40, Barbiturate Screen < 60, Ur Phencyclidine Scrn < 6.00, Amphetamines Screen < 100, U Benzodiazepines Scrn < 85, Urine Cocaine Screen < 50, Urine Cannabis Screen < 5.00, Urinalysis LIGHT H, Urine Color DULCE, Urine Clarity CLEAR, Urine pH 6.0, Ur Specific Mcgill 1.015, Urine Protein 100 H, Urine Ketones NEG, Urine Nitrite NEG, Urine Bilirubin NEG, Urine Urobilinogen 0.2, Ur Leukocyte Esterase TRACE H, Ur Microscopic SEDIMENT EXAMINED, Urine RBC 10-15 H, Urine WBC 3-5 H, Urine Crystals 1+ CA OX H, Urine Bacteria FEW H, Granular Casts 10-15 H, Micro UA Comment , Urine Hemoglobin LARGE H, Urine Glucose NEG Microbiology 12/28 2015 URINE ROUT: Urine Culture - RES Assessment/Plan Assessment: This is a 46 year-old male with a PMH of nephrolithiasis s/p lithotripsy and multiple ureteral stent placements who presented to ED on 12/27/16 with a chief complaint of worsening leg pain bilaterally x2 days and dark urine x1 day. In the ED, patient had AST 1133, ALT 317, creatine kinase >32,000, BUN 27, creatinine 1.3. Patient admitted to general medicine floor for suspected rhabdomyolysis. Today, AST is 905, ALT 335, creatine kinase >32,000, BUN 9, creatinine 0.9. Patient notes that he is doing well today, with no leg pain or soreness. Plan: For rhabdomyolysis: -Creatine kinase continues to be >32,000. -Repeat LFTs and creatine kinase tomorrow AM. -Avoid NSAIDs. For pain: -Morphine 2mg IV Q4H PRN for severe pain (scale 7-10). -Oxycodone 5mg PO Q6H PRN for moderate pain (scale 4-6). -Acetaminophen 650mg PO Q12H PRN for mild pain (scale 1-3). For acute kidney injury: -Patient given 1L bolus of normal saline on admission to general medicine floor. -IV fluids were begun at 150cc/hr, then increased to 250cc/hr. -Consider giving IV fluids at 150cc/hr beginning tomorrow. -Creatinine has been trending down 1.3-->1.1-->0.9 -Encourage oral fluid intake. For anxiety: -Hydroxyzine 10mg PO QID PRN. DVT prophylaxis: -Heparin 5,000 units SC Q8H Diet: regular Francisco Mcdowell, MS3
[2016-12-29 15:03] VITALS: BP 140/88
--- NOTE | 2016-12-29 15:49 | Patient Discharge Instructions ---
Discharge Instructions General Discharge Information You were seen/treated for: Rhabdomyolysis Special Instructions: Please drink enough fluids/water. Please repeat blood test (BEP) within one week and follow up with your PCP Dr Kenney for that too. Please visit your primary care physician within 7 days of discharge. He is return to emergency if symptoms worsen. Diet Continue normal diet: Yes Recommended Diet: Heart Healthy Activity Full Activity/No Limits: No Activity Self Limited: Yes Acute Coronary Syndrome Inclusion Criteria At DC or during hospital stay patient has or had the following: ACS DIAGNOSIS No Discharge Core Measures Meds if any: Prescribed or Continued at Discharge Meds if any: NOT Prescribed or Continued at Discharge Congestive Heart Failure Inclusion Criteria At DC or during hospital stay patient has or had the following: CHF DIAGNOSIS No Discharge Core Measures Meds if any: Prescribed or Continued at Discharge Meds if any: NOT Prescribed or Continued at Discharge Cerebrovascular accident Inclusion Criteria At DC or during hospital stay patient has or had the following: CVA/TIA Diagnosis No Discharge Core Measures Meds if any: Prescribed or Continued at Discharge Meds if any: NOT Prescribed or Continued at Discharge Venous thromboembolism Inclusion Criteria VTE Diagnosis No VTE Type NONE VTE Confirmed by (Test) NONE Discharge Core Measures - Per Current guidelines, there needs to be overlap - treatment for the first 5 days of Warfarin therapy. - If discharged on Warfarin prior to 5 days of - overlap therapy, the patient will need to be - assessed for post discharge needs including - *Post discharge parental anticoagulation - *Warfarin and/or parental anticoagulation education - *Follow up date to check INR post discharge At least 5 days overlap therapy as Inpatient No Meds if any: Prescribed or Continued at Discharge Note: Overlap Therapy is Warfarin and Anticoagulant Meds if any: NOT Prescribed or Continued at Discharge
--- NOTE | 2016-12-29 18:39 | ULTRASOUND REPORT ---
EXAMINATION: US ABDOMEN LIMITED CLINICAL INFORMATION: Transaminitis. COMPARISON: CT abdomen and pelvis dated 10/24/2015 07/20/2016 TECHNIQUE: Real-time imaging of the right upper quadrant abdominal viscera. FINDINGS: PANCREAS: Partially obscured by overlying bowel gas. Visualized portions are unremarkable. LIVER: Hepatomegaly with increased hepatic echogenicity. No focal hepatic abnormality. No evidence of intrahepatic biliary ductal dilatation. GALLBLADDER: Normal. The gallbladder is physiologically distended without evidence of stones, sludge, polyps, wall thickening or pericholecystic fluid. COMMON BILE DUCT: Normal in caliber measuring 0.4 cm in diameter. RIGHT KIDNEY: Normal. No hydronephrosis. No renal calculi or focal parenchymal lesions. The kidney measures 10.9 cm in maximum dimension. FREE FLUID: None. IMPRESSION: 1. Hepatic steatosis. 2. No sonographic evidence of gallbladder disease.
[2016-12-29 23:47] VITALS: BP 130/84
[2016-12-30 07:10] VITALS: BP 146/100
[2016-12-30 07:42] VITALS: BP 140/96
--- NOTE | 2016-12-30 07:53 | PN- Housestaff ---
ABBY CERVANTES,COLT 12/30/16 0753: Subjective Follow-up For: Rhabdomyolysis LEONA - resolved Subjective: I saw and examined the patient today morning He is doing much better, still feeling sore in his muscles. Offers no concerns except discharge. Drinking plenty of water, still on 250ml/hr fluids running. Review of Systems Constitutional: Reports: see HPI. Comments: ROS negative except the above. Objective Last 24 Hrs of Vital Signs/I&O Vital Signs Date Time Temp Pulse Resp B/P B/P Pulse O2 O2 Flow FiO2 Mean Ox Delivery Rate 12/30 0742 97.8 86 20 140/96 97 12/29 2347 98.1 90 18 130/84 96 Room Air 12/29 1503 98.1 92 18 140/88 96 Room Air Intake & Output 12/30 0800 12/30 0000 12/29 1600 Intake Total 1800 2350 Output Total 300 2450 2740 Balance -300 -650 -390 Intake, IV 1000 2000 Intake, Oral 800 350 Output, Urine 300 2450 2740 Physical Exam General Appearance: Alert, Oriented X3, Cooperative, No Acute Distress Skin: rash on the dorsal aspect of his fingers. HEENT: Atraumatic, PERRLA, EOMI Neck: Supple Cardiovascular: Normal S1, Normal S2 Lungs: Clear to Auscultation, Normal Air Movement Abdomen: Normal Bowel Sounds, Soft, No Tenderness Neurological: Normal Gait, Normal Speech, Strength at 5/5 X4 Ext, Normal Tone, Sensation Intact Extremities: No Clubbing, No Cyanosis, No Edema Current Medications: Current Medications Sig/Jm Start time Last Medication Dose Route Stop Time Status Admin Heparin Sodium 5,000 UNIT Q8 12/27 2241 AC 12/30 (Porcine) SC 0811 Hydroxyzine HCl 10 MG 4 TIMES/DAY PRN 12/28 0315 AC 12/28 PO 2117 Morphine Sulfate 2 MG Q4P PRN 12/27 224 AC IV Oxycodone HCl 5 MG Q6-PRN PRN 12/28 0945 AC PO Patient Medication 1 ED .STK-MED ONE 12/29 1350 DC Teaching ED 12/29 1351 Sodium Chloride 1,000 ML .Q4H 12/27 2245 AC 12/30 IV 1048 Last 24 Hrs of Lab/Farhad Results Last 24 Hrs of Labs/Mics: Laboratory Tests 12/30/16 0620: Anion Gap 10, Estimated GFR > 60, BUN/Creatinine Ratio 11.3, Total Bilirubin 0.8 , Direct Bilirubin 0.3, AST 933 H, ALT 398 H, Alkaline Phosphatase 69, Creatine Kinase > 96434 H, Total Protein 6.0 L, Albumin 3.4 L Assessment/Plan Assessment: 46-year-old male with no past medical history other than bilateral renal stones status post surgery last year, came into the emergency department with bilateral lower extremity pain and dark colored urine on 12/27/2016 after a spinning/heavy workout session. In the ED, he was found to be having dark-colored urine with RBCs in urine, increase in BUN/creatinine being 27/1.3, and CK of >32,000. His CBC was normal and a tox screen was normal as well. With the clinical picture, laboratory reports a provisional diagnosis of rhabdomyolysis was made. He is currently admitted in the general medical floor for the following issues: Rhabdomyolysis resulting in LEONA * BUN/Cr 27/1.5 at admission with CPK level of >92822 - muscle injury resulted in tubular damage/LEONA. * LEONA resolved. -- today BUN/Cr. (avoiding nephrotoxic drugs) * Aggressive fluid resusciation with 250ml/hr, encouraged to drink lots of water. * Still lab values are not conclusive of definitive CK levels (shows >41428). * Not in fluid overload - young and tolerating fluids well. * Closely montoring for signs of fluid overload - shortness of breath, crackles on lung examination, increased leg edema. Dermatological findings suggestive of dermatomyositis Of note, patient has bilateral lesions over his knuckles, which somewhat looks like dermatomyositis. He was on steroid cream for this. This can be followed up as an outpatient with her transit operations supervisor. Transaminitis Initial AST/ALT were 1133/6317, unknown whether this is secondary to rhabdomyolysis. * Trend LFTs, Today AST/ALT is 933/398, better than the previous one * Might check GGT later, but the ALP is normal. * Denies alcohol intake -- Former intake 5yrs ago. Anxiety -Hydroxyzine 10 mg as needed #Diet regular #DVT prophylaxis with subcutaneous heparin #CODE STATUS full code Problem List: 1. Transaminitis 2. Dermatomyositis 3. Rhabdomyolysis 4. LEONA (acute kidney injury) Pain Ratin Pain Location: Musculoskeletal - whole body Pain Goal: Pain 4 or less Pain Plan: oxycodone HCL 5mg Morphine IV Q4prn Tomorrow's Labs & Rationales: CK levels BEP and LFT's to monitor electrolytes and liver enzymes BOOGIE CERVANTES,AMIR 12/30/16 1118: Attending MD Review Statement Attending Statement Attending MD Statement: examined this patient, discuss w/resident/PA/SHUTTLE VAN DRIVER, agreed w/resident/PA/SHUTTLE VAN DRIVER, reviewed EMR data (avail), discussed with nursing Attending Assessment/Plan: Mr. Corcoran was seen and evalauted. Reports doing OK, denies any leg pain while ambulating. CPKs elevated. Cont IVF. LFT's elevated c/w rhabdo and fatty liver. Pt was advised to cont to monitor his diet and weight reduction. Avoid dietary supplements. Rest of the plan as per resident's note
[2016-12-30 15:05] VITALS: BP 134/84
[2016-12-30 22:09] VITALS: BP 132/90
[2016-12-31 06:59] VITALS: BP 140/82
--- NOTE | 2016-12-31 08:15 | PN- Student ---
Subjective Subjective: Today, patient notes no tenderness or soreness in his legs. He notes that it has been hard to sleep at night, and he is frustrated that he is still here in the hospital inpatient. Denies chest pain, abdominal pain, dysuria. Current Medications Sig/Jm Start time Last Medication Dose Route Stop Time Status Admin Heparin Sodium 5,000 UNIT Q8 12/27 2241 AC 12/31 (Porcine) SC 0602 Hydroxyzine HCl 10 MG 4 TIMES/DAY PRN 12/28 0315 AC 12/28 PO 2117 Morphine Sulfate 2 MG Q4P PRN 12/27 2244 AC IV Oxycodone HCl 5 MG Q6-PRN PRN 12/28 0945 AC PO Potassium Chloride 40 MEQ ONCE ONE 12/30 1215 DC 12/30 PO 12/30 1216 1230 Sodium Chloride 1,000 ML .Q4H 12/27 2244 AC 12/31 IV 0729 Objective Objective: Vital Signs Date Time Temp Pulse Resp B/P B/P Pulse O2 O2 Flow FiO2 Mean Ox Delivery Rate 12/31 0659 97.9 81 20 140/82 96 12/30 2209 97.8 83 20 132/90 92 Nasal 4.0L Cannula 12/30 1505 97.4 89 20 134/84 94 Room Air Intake & Output 12/31 1600 12/31 0800 12/31 0000 Intake Total 2400 1600 Output Total 3550 1700 Balance -1150 -100 Intake, IV 2000 1000 Intake, Oral 400 600 Output, Urine 3550 1700 Physical Exam: General: alert and oriented x3, cooperative, appears frustrated, in no acute distress Cardiovascular: regular rate and rhythm, S1, S2, no murmurs, rubs, or gallops Pulmonary: lungs clear to auscultation bilaterally, good air entry throughout Abdomen: soft, non-tender, no masses Extremities: no tenderness on palpation of lower extremities; no clubbing, cyanosis, edema Skin: dry skin over dorsal aspect of MCP joints of hands bilaterally On IV fluids: NS 250cc/hr Results Results: Laboratory Tests 12/31/16 0705: Sodium Pending, Potassium Pending, Chloride Pending, Carbon Dioxide Pending, Anion Gap Pending, BUN Pending, Creatinine Pending, BUN/Creatinine Ratio Pending , Total Bilirubin Pending, Direct Bilirubin Pending, AST Pending, ALT Pending, Alkaline Phosphatase Pending, Creatine Kinase Pending, Total Protein Pending, Albumin Pending 12/30/16 0620: Anion Gap 10, Estimated GFR > 60, BUN/Creatinine Ratio 11.3, Total Bilirubin 0.8 , Direct Bilirubin 0.3, AST 933 H, ALT 398 H, Alkaline Phosphatase 69, Creatine Kinase > 32760 H, Total Protein 6.0 L, Albumin 3.4 L 12/29/16 0708: Anion Gap 8, Estimated GFR > 60, BUN/Creatinine Ratio 10.0, Total Bilirubin 0.7, Direct Bilirubin 0.2, AST 905 H, ALT 335 H, Alkaline Phosphatase 68, Creatine Kinase > 26166 H, Total Protein 5.9 L, Albumin 3.3 L Assessment/Plan Assessment: This is a 46 year-old male with a PMH of nephrolithiasis s/p lithotripsy and multiple ureteral stent placements who presented to ED on 12/27/16 with a chief complaint of worsening leg pain bilaterally x2 days and dark urine x1 day. In the ED, patient had AST 1133, ALT 317, creatine kinase >32,000, BUN 27, creatinine 1.3. Patient admitted to general medicine floor for suspected rhabdomyolysis. Per lab, creatine kinase has been trending down, but still >32, 000. LEONA has resolved, going from 1.3-->1.1-->0.9-->0.8. Today, patient notes no leg pain or soreness, but has not been sleeping well and is frustrated that he is still inpatient in the hospital. Plan: For rhabdomyolysis resulting in LEONA: -LEONA resolved. Avoid NSAIDs and other nephrotoxic drugs. -Continue fluid resuscitation IV NS 250cc/hr. Patient not in fluid overload, tolerating fluids well. -Continue to monitor for signs of fluid overload- shortness of breath, lung crackles, leg edema. -CK and electrolytes pending today. For difficulty sleeping: -Will plan on transferring patient to private room today. For transaminitis: -Trend LFTs: initial AST 1133/ALT 317-->1129/325-->905/335-->933/398. -LFTs pending today. For pain: -Morphine 2mg IV Q4H PRN for severe pain (scale 7-10). -Oxycodone 5mg PO Q6H PRN for moderate pain (scale 4-6). -Acetaminophen 650mg PO Q12H PRN for mild pain (scale 1-3). For scaly, dry knuckles on hands bilaterally: -Hydrocortisone cream as needed. -Return to PCP/possible rheumatology referral for further workup on discharge. For anxiety: -Hydroxyzine 10mg PO QID PRN. DVT prophylaxis: -Heparin 5,000 units SC Q8H Diet: regular Francisco Mcdowell, MS3 #Diet regular #DVT prophylaxis with subcutaneous heparin #CODE STATUS full code Problem List: 1. Transaminitis 2. Dermatomyositis 3. Rhabdomyolysis 4. LEONA (acute kidney injury) Pain Ratin Pain Location: Musculoskeletal - whole body Pain Goal: Pain 4 or less Pain Plan: oxycodone HCL 5mg Morphine IV Q4prn Tomorrow's Labs & Rationales: CK levels BEP and LFT's to monitor electrolytes and liver enzymes
--- NOTE | 2016-12-31 09:01 | PN- Housestaff ---
LAURYN CERVANTES,FIORELLA 12/31/16 0901: Subjective Follow-up For: Rhabdomyolysis Complaints: no complaints Subjective: I saw and examined the patient today morning. He is doing fine, offers no complaints. His vitals have been stable, no overnight issues. Of note, he is still getting IV fluids at 250 mL per hour, and is drinking plenty of water by mouth. Review of Systems Constitutional: Reports: no symptoms. Objective Last 24 Hrs of Vital Signs/I&O Vital Signs Date Time Temp Pulse Resp B/P B/P Pulse O2 O2 Flow FiO2 Mean Ox Delivery Rate 12/31 1514 98.7 88 20 132/80 96 Room Air 12/31 0827 18 96 Room Air Room Air 12/31 0659 97.9 81 20 140/82 96 Intake & Output 12/31 1600 12/31 0800 12/31 0000 Intake Total 3000 2400 1600 Output Total 2850 3550 1700 Balance 150 -1150 -100 Intake, IV 2000 2000 1000 Intake, Oral 1000 400 600 Output, Urine 2850 3550 1700 Physical Exam General Appearance: Alert, Oriented X3, Cooperative, No Acute Distress, obese Other Physical Findings: Skin: rash on the dorsal aspect of his fingers (not new) HEENT: Atraumatic, PERRLA, EOMI Neck: Supple Cardiovascular: Normal S1, Normal S2 Lungs: Clear to Auscultation, Normal Air Movement Abdomen: Normal Bowel Sounds, Soft, No Tenderness Neurological: Normal Gait, grossly intact Extremities: No Clubbing, No Cyanosis, No Edema Current Medications: Current Medications Sig/Jm Start time Last Medication Dose Route Stop Time Status Admin Heparin Sodium 5,000 UNIT Q8 12/27 2241 AC 12/31 (Porcine) SC 2123 Hydroxyzine HCl 10 MG 4 TIMES/DAY PRN 12/28 0315 AC 12/31 PO 2119 Morphine Sulfate 2 MG Q4P PRN 12/27 2244 AC IV Oxycodone HCl 5 MG Q6-PRN PRN 12/28 0945 AC PO Sodium Chloride 1,000 ML .Q4H 12/27 2244 AC 12/31 IV 2228 Last 24 Hrs of Lab/Farhad Results Last 24 Hrs of Labs/Mics: Laboratory Tests 12/31/16 0705: Anion Gap 13, Estimated GFR > 60, BUN/Creatinine Ratio 12.5, Total Bilirubin 0.8 , Direct Bilirubin 0.3, AST 969 H, ALT 557 H, Alkaline Phosphatase 84, Creatine Kinase > 02790 H, Total Protein 6.8, Albumin 3.9 Assessment/Plan Assessment: 46-year-old male with no past medical history other than bilateral renal stones status post surgery last year, came into the emergency department with bilateral lower extremity pain and dark colored urine on 12/27/2016 after a spinning/heavy workout session. In the ED, he was found to be having dark-colored urine with RBCs in urine, increase in BUN/creatinine being 27/1.3, and CK of >32,000. His CBC was normal and a tox screen was normal as well. With the clinical picture, laboratory reports a provisional diagnosis of rhabdomyolysis was made. He is currently admitted in the general medical floor for the following issues: Rhabdomyolysis resulting in LEONA * BUN/Cr 27/1.5 at admission with CPK level of >51942 - muscle injury resulted in tubular damage/LEONA. * LEONA resolved. 10/0.8 today BUN/Cr. (avoiding nephrotoxic drugs) * Aggressive fluid resusciation with 250ml/hr, encouraged to drink lots of water. * Still lab values are not conclusive of definitive CK levels (shows >81773). * Not in fluid overload - young patient, and tolerating fluids well. * Closely montoring for signs of fluid overload - shortness of breath, crackles on lung examination, increased leg edema. Dermatological findings suggestive of dermatomyositis Of note, patient has bilateral lesions over his knuckles, which somewhat looks like lesions of dermatomyositis. He was on steroid cream for this. This can be followed up as an outpatient with her medicaid nurse. Transaminitis Initial AST/ALT were 1133/6317, unknown whether this is secondary to rhabdomyolysis. * Trend LFTs, Today AST/ALT is 969/557, worse than the yesterday, so gastrointestinal consultation was initially requested, but after curbsiding with outpatient phlebotomist, he suggested that the creatinine kinase level and his current rhabdomyolysis state to improve to investigate for the reason of increased liver enzymes. If in case he still has it or is worsening, will consider gastroenterologic consultation. Denies alcohol intake -- Former intake 5yrs ago. Anxiety -Hydroxyzine 10 mg as needed #Diet regular #DVT prophylaxis with subcutaneous heparin #CODE STATUS full code Problem List: 1. Rhabdomyolysis 2. Transaminitis 3. Dermatomyositis 4. Anxiety Pain Ratin Pain Location: - Pain Goal: Pain 4 or less Pain Plan: prn Tomorrow's Labs & Rationales: BEP, CK, LFT, to f/u rhabdomyolysis and to replete electrolytes if needed BOOGIE CERVANTES,AMIR 12/31/16 1253: Attending MD Review Statement Attending Statement Attending MD Statement: examined this patient, discuss w/resident/PA/MUSIC TYPOGRAPHER, agreed w/resident/PA/MUSIC TYPOGRAPHER, reviewed EMR data (avail), discussed with nursing Attending Assessment/Plan: Pt was seen and evaluated. Little upset that his labs not improving. Denies any leg pain. Dec appetite, o/w unremarkable ROS. Labs still c/w elevated CPK, LFTs trending up I explained him that his labs are elevated and he requires IVF. Recommend GI/ Liver eval for his elevated LFTs. Pt in agreement with the plan. Cont to monitor, f/u LFTs and CPKs
[2016-12-31 15:14] VITALS: BP 132/80
[2016-12-31 22:39] VITALS: BP 124/92
[2017-01-01 05:56] VITALS: BP 132/100
--- NOTE | 2017-01-01 07:34 | PN- Housestaff ---
LAURYN CERVANTES,FIORELLA 01/01/17 0734: Subjective Follow-up For: Rhabdomyolysis Complaints: no complaints Subjective: I followed-up and examined the patient today morning. He is resting comfortably in his bed, not in distress, offers no complaints. His vitals have been stable, no overnight issues. Of note, he is still getting IV fluids at 250 mL per hour, and is drinking plenty of water by mouth. IV fluid rate changed to 200ml/hr during morning round today. Review of Systems Constitutional: Reports: no symptoms. Objective Last 24 Hrs of Vital Signs/I&O Vital Signs Date Time Temp Pulse Resp B/P B/P Pulse O2 O2 Flow FiO2 Mean Ox Delivery Rate 01/01 2250 97.8 87 20 130/87 97 Room Air 01/01 1445 98.5 94 20 142/99 94 Room Air 01/01 0556 98.0 88 20 132/100 96 Room Air Intake & Output 01/01 1600 01/01 0800 01/01 0000 Intake Total 2600 1240 2840 Output Total 2100 1700 1825 Balance 500 -460 1015 Intake, IV 1600 1000 2000 Intake, Oral 1000 240 840 Number 1 Bowel Movements Output, Urine 2100 1700 1825 Patient 124.738 kg Weight Physical Exam General Appearance: Alert, Oriented X3, Cooperative, No Acute Distress, obese Other Physical Findings: Skin: rash on the dorsal aspect of his fingers (not new) HEENT: Atraumatic, PERRLA, EOMI Neck: Supple Cardiovascular: Normal S1, Normal S2 Lungs: Clear to Auscultation, Normal Air Movement Abdomen: Normal Bowel Sounds, Soft, No Tenderness Neurological: Normal Gait, grossly intact Extremities: No Clubbing, No Cyanosis, No Edema Current Medications: Current Medications Sig/Jm Start time Last Medication Dose Route Stop Time Status Admin Heparin Sodium 5,000 UNIT Q8 12/27 2241 AC 01/01 (Porcine) SC 2151 Hydroxyzine HCl 10 MG 4 TIMES/DAY PRN 12/28 0315 AC 12/31 PO 2119 Morphine Sulfate 2 MG Q4P PRN 12/27 2244 AC IV Oxycodone HCl 5 MG Q6-PRN PRN 12/28 0945 AC PO Patient Medication 1 ED .STK-MED ONE 01/01 1251 DC Teaching ED 01/01 1252 Sodium Chloride 1,000 ML .Q5H 12/27 2244 AC 01/01 IV 2152 Last 24 Hrs of Lab/Farhad Results Last 24 Hrs of Labs/Mics: Laboratory Tests 01/01/17 0630: Anion Gap 12, Estimated GFR > 60, BUN/Creatinine Ratio 12.5, Total Bilirubin 0.7 , Direct Bilirubin 0.2, AST 513 H, ALT 478 H, Alkaline Phosphatase 72, Creatine Kinase 96663 H, Total Protein 6.0 L, Albumin 3.4 L Assessment/Plan Assessment: 46-year-old male with no past medical history other than bilateral renal stones status post surgery last year, came into the emergency department with bilateral lower extremity pain and dark colored urine on 12/27/2016 after a spinning/heavy workout session. In the ED, he was found to be having dark-colored urine with RBCs in urine, increase in BUN/creatinine being 27/1.3, and CK of >32,000. His CBC was normal and a tox screen was normal as well. With the clinical picture, laboratory reports a provisional diagnosis of rhabdomyolysis was made. He is currently admitted in the general medical floor for the following issues: Rhabdomyolysis resulting in LEONA * BUN/Cr 27/1.5 at admission with CPK level of >05733 - muscle injury resulted in tubular damage/LEONA. * LEONA resolved. 10/0.8 today BUN/Cr. (avoiding nephrotoxic drugs) * Aggressive fluid resusciation with 200ml/hr, encouraged to drink lots of water. (reduced from 250ml/hr today) * Lab values [place] [address]. Earlier values were officially reported as >53983 by standard technique. Upon request and dilutional method, the first CK level was estimated to be roughly 414395, and the third one on Sunday was 37146. This has been a significant improvement in his condition. CK levels below 10,000 would be safer to discharge to home with some more rest thereafter. * Possible discharge in the morning as levels continue to drop towards normality. * Not in fluid overload - young patient, and tolerating fluids well. * Closely montoring for signs of fluid overload - shortness of breath, crackles on lung examination, increased leg edema. Dermatological findings suggestive of dermatomyositis Of note, patient has bilateral lesions over his knuckles, which somewhat looks like lesions of dermatomyositis. He was on steroid cream for this. This can be followed up as an outpatient with her cert occupational therapy asst. Transaminitis Initial AST/ALT were 1133/6317, unknown whether this is secondary to rhabdomyolysis. * Trend LFTs, Today AST/ALT is 513/478, improving. In case he still has high level of liver enzymes or is worsening, will consider gastroenterologic consultation. Denies alcohol intake -- Former intake 5yrs ago. Hypokalemia K level 3.6, repleted today. Will recheck BEP in AM Anxiety -Hydroxyzine 10 mg as needed #Diet regular #DVT prophylaxis with subcutaneous heparin #CODE STATUS full code Problem List: 1. Rhabdomyolysis 2. Transaminitis 3. Anxiety Pain Ratin Pain Location: - Pain Goal: Pain 4 or less Pain Plan: prn Tomorrow's Labs & Rationales: BEP, LFT, CK for discharge planning and to replete citlaly JACKSON MD,[facility] 01/01/17 1206: Attending MD Review Statement Attending Statement Attending MD Statement: examined this patient, discuss w/resident/PA/RENEWALS SPECIALIST, agreed w/resident/PA/RENEWALS SPECIALIST, reviewed EMR data (avail), discussed with nursing, discussed with case mgmt, amended to note Attending Assessment/Plan: Patient seen and examined. Lying comfortably in bed and not in any acute distress. No issues overnight reported by nursing staff. Denies leg pain or cramping. Denies nausea vomiting. Denies abdominal pain. Review of laboratory data shows improvement of his LFTs. This is likely secondary to his markedly elevated CPK level. His CK levels remain greater than 35,000. Following discussion with the labs, diluted CPK levels were checked. The exact figures are not entirely accurate however it appears that his CPK level continues to trend downwards. We'll continue hydration aggressively. However we will reduce to 200 mL/h. Anticipate discharge when CPK level is less than 10 ,000.
--- NOTE | 2017-01-01 07:41 | PN- Student ---
Subjective Subjective: Patient notes he is doing much better since he got a private room. Was able to sleep last night. Has no concerns. Denies chest pain, shortness of breath, dysuria, leg pain. Current Medications Sig/Jm Start time Last Medication Dose Route Stop Time Status Admin Heparin Sodium 5,000 UNIT Q8 12/27 224 AC 01/01 (Porcine) SC 0642 Hydroxyzine HCl 10 MG 4 TIMES/DAY PRN 12/28 0315 AC 12/31 PO 2119 Morphine Sulfate 2 MG Q4P PRN 12/27 2244 AC IV Oxycodone HCl 5 MG Q6-PRN PRN 12/28 0945 AC PO Sodium Chloride 1,000 ML .Q4H 12/27 2244 AC 01/01 IV 0639 Objective Objective: Vital Signs Date Time Temp Pulse Resp B/P B/P Pulse O2 O2 Flow FiO2 Mean Ox Delivery Rate 01/01 0556 98.0 88 20 132/100 96 Room Air 12/31 2239 98.2 88 20 124/92 99 Room Air 12/31 1514 98.7 88 20 132/80 96 Room Air 12/31 0827 18 96 Room Air Room Air Intake & Output 01/01 0800 01/01 0000 12/31 1600 Intake Total 1240 2840 3000 Output Total 1700 1825 2850 Balance -460 1015 150 Intake, IV 1000 2000 2000 Intake, Oral 623 991 2499 Output, Urine 1700 1825 2850 Physican Exam: General: sitting comfortably in bed, alert and oriented x3, cooperative, in no acute distress Cardiovascular: regular rate and rhythm, S1, S2, no murmurs, rubs, or gallops Lungs: clear to auscultation bilaterally, good air entry throughout Abdomen: normal bowel sounds, soft, non-tender, no masses Extremities: no tenderness on palpation of lower extremities; no clubbing, cyanosis, edema On IV fluids: NS 250cc/hr Results Results: Laboratory Tests 01/01/17 0630: Sodium Pending, Potassium Pending, Chloride Pending, Carbon Dioxide Pending, Anion Gap Pending, BUN Pending, Creatinine Pending, BUN/Creatinine Ratio Pending , Total Bilirubin Pending, Direct Bilirubin Pending, AST Pending, ALT Pending, Alkaline Phosphatase Pending, Creatine Kinase Pending, Total Protein Pending, Albumin Pending 12/31/16 0705: Anion Gap 13, Estimated GFR > 60, BUN/Creatinine Ratio 12.5, Total Bilirubin 0.8 , Direct Bilirubin 0.3, AST 969 H, ALT 557 H, Alkaline Phosphatase 84, Creatine Kinase > 44799 H, Total Protein 6.8, Albumin 3.9 12/30/16 0620: Anion Gap 10, Estimated GFR > 60, BUN/Creatinine Ratio 11.3, Total Bilirubin 0.8 , Direct Bilirubin 0.3, AST 933 H, ALT 398 H, Alkaline Phosphatase 69, Creatine Kinase > 95725 H, Total Protein 6.0 L, Albumin 3.4 L Assessment/Plan Assessment: This is a 46 year-old male with a PMH of nephrolithiasis s/p lithotripsy and multiple ureteral stent placements who presented to ED on 12/27/16 with a chief complaint of worsening leg pain bilaterally x2 days and dark urine x1 day. In the ED, patient had AST 1133, ALT 317, creatine kinase >32,000, BUN 27, creatinine 1.3. Patient admitted to general medicine floor for suspected rhabdomyolysis. Per lab, creatine kinase has been trending down, but still >32, 000. LEONA has resolved, going from 1.3-->1.1-->0.9-->0.8. Today, patient notes no leg pain or soreness, and notes that he is feeling much better now that he is in a private hospital room. Plan: For rhabdomyolysis resulting in LEONA: -LEONA resolved. Avoid NSAIDs and other nephrotoxic drugs. -Continue fluid resuscitation IV NS 250cc/hr. Patient not in fluid overload, tolerating fluids well. -Continue to monitor for signs of fluid overload- shortness of breath, lung crackles, leg edema. -CK and electrolytes pending today. -Will plan on discharge when CK levels trend down to 10,000 U/L. For transaminitis: -Trend LFTs: initial AST 1133/ALT 317-->1129/325-->905/335-->933/398-->969/557. -Gastrointestinal consultation was initially requested for worsening LFTs, but after curbside GI consult, GI suggested that the CK level and rhabdomyolysis improve before investigating the cause of increased LFTs. If LFTs continue to worsen, will consult GI. -LFTs pending today. For pain: -Morphine 2mg IV Q4H PRN for severe pain (scale 7-10). -Oxycodone 5mg PO Q6H PRN for moderate pain (scale 4-6). -Acetaminophen 650mg PO Q12H PRN for mild pain (scale 1-3). For scaly, dry knuckles on hands bilaterally: -Hydrocortisone cream as needed. -Return to PCP/possible rheumatology referral for further workup on discharge. For anxiety: -Hydroxyzine 10mg PO QID PRN. DVT prophylaxis: -Heparin 5,000 units SC Q8H Diet: regular Francisco Mcdowell MS3 consider gastroenterologic consultation.
[2017-01-01 14:45] VITALS: BP 142/99
[2017-01-01 22:50] VITALS: BP 130/87
[2017-01-02 06:13] VITALS: BP 130/94
--- NOTE | 2017-01-02 07:16 | PN- Housestaff ---
LAURYN CERVANTES,FIORELLA 01/02/17 0716: Subjective Follow-up For: Rhabdomyolysis Complaints: no complaints Subjective: I followed up and examined the patient today. He is resting comfortably in his bed, not in distress, does not have any IV fluids running, is curious about his lab results this morning for his discharge. His vitals have been stable and no there has been overnight events otherwise. Review of Systems Constitutional: Reports: no symptoms. Objective Last 24 Hrs of Vital Signs/I&O Vital Signs Date Time Temp Pulse Resp B/P B/P Pulse O2 O2 Flow FiO2 Mean Ox Delivery Rate 01/02 0613 98.2 85 20 130/94 97 Room Air 01/01 2250 97.8 87 20 130/87 97 Room Air Intake & Output 01/02 1600 01/02 0800 01/02 0000 Intake Total 1710 800 Output Total 975 2300 Balance 735 -1500 Intake, IV 1600 Intake, Oral 110 800 Output, Urine 975 2300 Physical Exam General Appearance: Alert, Oriented X3, Cooperative, No Acute Distress, obese Other Physical Findings: Skin: rash on the dorsal aspect of his fingers (not new) HEENT: Atraumatic, PERRLA, EOMI Neck: Supple Cardiovascular: Normal S1, Normal S2 Lungs: Clear to Auscultation, Normal Air Movement Abdomen: Normal Bowel Sounds, Soft, No Tenderness Neurological: Normal Gait, grossly intact Extremities: No Clubbing, No Cyanosis, No Edema Current Medications: Current Medications Sig/Jm Start time Last Medication Dose Route Stop Time Status Admin Heparin Sodium 5,000 UNIT Q8 12/27 2242 DCD 01/02 (Porcine) SC 0611 Hydroxyzine HCl 10 MG 4 TIMES/DAY PRN 12/28 0315 DCD 12/31 PO 2119 Morphine Sulfate 2 MG Q4P PRN 12/27 2245 DCD IV Oxycodone HCl 5 MG Q6-PRN PRN 12/28 0945 DCD PO Potassium Chloride 60 MEQ ONCE ONE 01/02 1000 DC 01/02 PO 01/02 1001 1010 Sodium Chloride 1,000 ML .Q5H 12/27 2245 DC 01/02 IV 0747 Last 24 Hrs of Lab/Farhad Results Last 24 Hrs of Labs/Mics: Laboratory Tests 01/02/17 0817: Anion Gap 11, Estimated GFR > 60, BUN/Creatinine Ratio 12.2, Total Bilirubin 0.7 , Direct Bilirubin 0.2, AST 275 H, ALT 475 H, Alkaline Phosphatase 76, Creatine Kinase 4033 H, Total Protein 6.6, Albumin 3.8 Assessment/Plan Assessment: 46-year-old male with no past medical history other than bilateral renal stones status post surgery last year, came into the emergency department with bilateral lower extremity pain and dark colored urine on 12/27/2016 after a spinning/heavy workout session. In the ED, he was found to be having dark-colored urine with RBCs in urine, increase in BUN/creatinine being 27/1.3, and CK of >32,000. His CBC was normal and a tox screen was normal as well. With the clinical picture, laboratory reports a provisional diagnosis of rhabdomyolysis was made. He is currently admitted in the general medical floor for the following issues: Rhabdomyolysis resulting in LEONA * BUN/Cr 27/1.5 at admission with CPK level of >37624 - muscle injury resulted in tubular damage/LEONA. * LEONA resolved. 10/0.8 today BUN/Cr. (avoiding nephrotoxic drugs) * Aggressive fluid resusciation with 200ml/hr, encouraged to drink lots of water. (reduced from 250ml/hr today) * Lab values of CK is getting better, today at 4033. Was [address] yesterday. The first CK level was estimated to be roughly 013583, (roughly because the standard technique in the laboratory measures up to 32,000 only, anything more than that has to be done by dilation method which is not perfect.) Patient can be safely discharged home with advice to drink plenty of fluids and follow-up with his primary care physician with a repeat values of BEP, liver function test, creatinine kinase within this week. He has been advised not to go for sternous exercise right away. * Not in fluid overload - young patient, and tolerating fluids well. * Closely montoring for signs of fluid overload - shortness of breath, crackles on lung examination, increased leg edema. Dermatological findings suggestive of dermatomyositis Of note, patient has bilateral lesions over his knuckles, which somewhat looks like lesions of dermatomyositis. He was on steroid cream for this. This can be followed up as an outpatient with her butt trimmer. Transaminitis Initial AST/ALT were 1133/6317, unknown whether this is secondary to rhabdomyolysis. * Trend LFTs, Today AST/ALT is 275/475, much improved. Plan of GI consultation if enzymes remain high has been dropped. Denies alcohol intake -- Former intake 5yrs ago. Hypokalemia K level 3.3, repleted today. Anxiety -Hydroxyzine 10 mg as needed #Diet regular #DVT prophylaxis with subcutaneous heparin #CODE STATUS full code Problem List: 1. Rhabdomyolysis Pain Ratin Pain Location: - Pain Goal: Remain pain free Pain Plan: prn Tomorrow's Labs & Rationales: None, as the patient is being discharged today. XIN JACKSON MD 01/02/17 1431: Attending MD Review Statement Attending Statement Attending MD Statement: examined this patient, discuss w/resident/PA/BOOK AUTHOR, agreed w/resident/PA/BOOK AUTHOR, reviewed EMR data (avail), discussed with nursing, discussed with case mgmt, amended to note Attending Assessment/Plan: Patient seen and examined. Resting comfortably limits in any acute distress. No issues overnight. CPK level is remarkably this morning. He is medically stable to be discharged home. He has been advised to stay well hydrated and follow-up with his primary care provider next week for repeat CPK levels as well as LFTs. Potassium level slightly low today. He was provided with potassium supplements.
--- NOTE | 2017-01-02 08:32 | PN- Student ---
Subjective Subjective: Patient is doing well today, no complaints or concerns. States that he feels ready to be discharged. Denies shortness of breath, chest pain, leg pain, leg swelling, dysuria. Current Medications Sig/Jm Start time Last Medication Dose Route Stop Time Status Admin Heparin Sodium 5,000 UNIT Q8 12/27 224 AC 01/02 (Porcine) SC 0611 Hydroxyzine HCl 10 MG 4 TIMES/DAY PRN 12/28 0315 AC 12/31 PO 2119 Morphine Sulfate 2 MG Q4P PRN 12/27 2244 AC IV Oxycodone HCl 5 MG Q6-PRN PRN 12/28 0945 AC PO Patient Medication 1 ED .STK-MED ONE 01/01 1251 DC Teaching ED 01/01 1252 Sodium Chloride 1,000 ML .Q5H 12/27 2244 AC 01/02 IV 0747 Objective Objective: Vital Signs Date Time Temp Pulse Resp B/P B/P Pulse O2 O2 Flow FiO2 Mean Ox Delivery Rate 01/02 0613 98.2 85 20 130/94 97 Room Air 01/01 2250 97.8 87 20 130/87 97 Room Air 01/01 1445 98.5 94 20 142/99 94 Room Air Intake & Output 01/02 1600 01/02 0800 01/02 0000 Intake Total 800 Output Total 2300 Balance -1500 Intake, Oral 800 Output, Urine 2300 Physical Exam: General: awake and alert, cooperative, in no acute distress Cardiovascular: regular rate and rhythm, S1, S2, no murmurs, rubs, or gallops Lungs: clear to auscultation bilaterally, good air entry throughout Abdomen: soft, non-tender, no masses Extremities: no tenderness on palpation of lower extremities; no clubbing, cyanosis, edema On IV fluids: NS 200cc/hr Results Results: Laboratory Tests 01/02/17 0817: Anion Gap 11, Estimated GFR > 60, BUN/Creatinine Ratio 12.2, Total Bilirubin 0.7 , Direct Bilirubin 0.2, AST 275 H, ALT 475 H, Alkaline Phosphatase 76, Creatine Kinase 4033 H, Total Protein 6.6, Albumin 3.8 01/01/17 0630: Anion Gap 12, Estimated GFR > 60, BUN/Creatinine Ratio 12.5, Total Bilirubin 0.7 , Direct Bilirubin 0.2, AST 513 H, ALT 478 H, Alkaline Phosphatase 72, Creatine Kinase 66248 H, Total Protein 6.0 L, Albumin 3.4 L 12/31/16 0705: Anion Gap 13, Estimated GFR > 60, BUN/Creatinine Ratio 12.5, Total Bilirubin 0.8 , Direct Bilirubin 0.3, AST 969 H, ALT 557 H, Alkaline Phosphatase 84, Creatine Kinase > 02188 H, Total Protein 6.8, Albumin 3.9 Assessment/Plan Assessment: This is a 46 year-old male with a PMH of nephrolithiasis s/p lithotripsy and multiple ureteral stent placements who presented to ED on 12/27/16 with a chief complaint of worsening leg pain bilaterally x2 days and dark urine x1 day. In the ED, patient had AST 1133, ALT 317, creatine kinase >32,000, BUN 27, creatinine 1.3. Patient admitted to general medicine floor for suspected rhabdomyolysis. Creatine kinase was >32,000 for the first 5 days of admission, then 11,766 yesterday, and 4,033 today. LEONA has resolved, going from 1.3-->1.1-- >0.9-->0.8. Today, patient notes no leg pain or soreness, and potassium level decreased today to 3.3. Plan: For rhabdomyolysis resulting in LEONA: -LEONA resolved. Avoid NSAIDs and other nephrotoxic drugs. -Creatine kinase today is 4,033. Stable for discharge. -Instructed patient to follow-up with PCP (Dr. Kenney) next week for creatine kinase level. For transaminitis: -LFTs trending down. -Gastrointestinal consultation was initially requested for worsening LFTs, but after curbside GI consult, GI suggested that the CK level and rhabdomyolysis improve before investigating the cause of increased LFTs. If LFTs continue to worsen, will consult GI. For potassium level of 3.3 today: -Patient given 60 MEQ potassium chloride today PO one time. For pain: -Morphine 2mg IV Q4H PRN for severe pain (scale 7-10). -Oxycodone 5mg PO Q6H PRN for moderate pain (scale 4-6). -Acetaminophen 650mg PO Q12H PRN for mild pain (scale 1-3). For scaly, dry knuckles on hands bilaterally: -Hydrocortisone cream as needed. -Return to PCP/possible rheumatology referral for further workup on discharge. For anxiety: -Hydroxyzine 10mg PO QID PRN. DVT prophylaxis: -Heparin 5,000 units SC Q8H Diet: regular Francisco Mcdowell MS3
--- NOTE | 2017-01-02 21:25 | Discharge Summary ---
Visit Information Visit Dates Admission Date: 12/27/16 Discharge Date: 01/02/17 Hospital Course Course Attending Physician: XIN JACKSON M.D Primary Care Physician: CARLA GROSS DO [facility] Course: Mr Corcoran is a 46-year-old pleasant gentleman with no past medical history other than bilateral renal stones, status post surgery last year, came into the emergency department with bilateral lower extremity pain and dark colored urine on 12/27/2016 after a spinning/heavy workout session. In the ED, he was found to be having dark-colored urine with RBCs in urine, increase in BUN/creatinine being 27/1.3, and CK of >32,000. His CBC and tox screen were normal. With the clinical picture, and laboratory reports a provisional diagnosis of rhabdomyolysis was made and was admitted to the general medical floor for further management of following issues: Rhabdomyolysis resulting in LEONA, resolved * BUN/Cr 27/1.5 at admission [place] >83308 - muscle injury resulted in tubular damage/LEONA. LEONA resolved at the time of discahrge with BUN/Cr 10/0.8. (avoided nephrotoxic drugs). Aggressive fluid resusciation initially at 250ml/hr which was later tapered to 200ml/hr until the CK had come down to 10,000. patient was also encouraged to drink plenty of fluids which he did. Of note, he was never fluid overloaded and did not have signs of congestive heart failure. Lab values of CK got better, and was 4033 on the day of discharge. Was 74[address] the day before. The first CK level was estimated to be roughly 264960, (roughly because the standard technique in the laboratory measures up to 32,000 only, anything more than that has to be done by dilution method which is not perfect.) Patient could be safely discharged home with advice to drink plenty of fluids and follow-up with his primary care physician and repeat values of BEP, liver function test, creatinine kinase within this week. He has been advised not to go for sternous exercise right away. Dermatological findings suggestive of dermatomyositis Of note, patient has bilateral lesions over his knuckles, which somewhat looks like lesions of dermatomyositis. He was on steroid cream for this. This can be followed up as an outpatient with his PCP/ division sales manager. Transaminitis Initial AST/ALT were 1133/6317, unknown whether this was secondary to rhabdomyolysis. We trended LFTs, which showed AST/ALT at 275/475, much improved. Plan of GI consultation if enzymes remained was dropped. He denies alcohol intake, and his last intake was 5yrs ago. Hypokalemia K level on the day of discharge was 3.3, was repleted. Anxiety -Hydroxyzine 10 mg as needed #Diet: regular #DVT prophylaxis with subcutaneous heparin #CODE STATUS full code Allergies: Coded Allergies: No Known Allergies (10/24/15) Significant Procedures: none Pertinent Lab Results: CK level, liver enzymes, and potassium was significant as mentioned above in hospital course. Disposition Summary Disposition Principal Diagnosis: Rhabdomyolysis Additional Diagnosis: Obesity Discharge Disposition: home or self care Discharge Instructions General Discharge Information Code Status: Full Code Patient's Diet: Heart healthy Patient's Activity: As tolerated Follow-Up Instructions/Appts: Please drink enough fluids/water. Please visit your primary care physician within 7 days of discharge. Please repeat blood test (BEP), liver function test (LFT), creatine kinaseenzyme (CK) within one week and follow up with your PCP Dr Gross for that too. Please to not injuries in sternous exercise for at least next week. He is return to emergency if symptoms worsen. Copies To: CARLA GROSS DO, MD Review Statement Documenting Attending: XIN JACKSON M.D Other Findings: I have reviewed the discharge summary.
== END 2017-01-02 12:29 | DRG 558 ==
LOC: ERH 20:07 → 2NB 22:15 → ERHI 22:15 → ENRESERV 22:45 → 2NB 12-28 00:05 → CMPBEDREQ 12-28 12:12 → 2NB 12-31 09:36 → ENPENDDIS 01-02 10:24 → 2NB 01-02 12:29
PROVIDERS: Emergency Medicine; ADMIT Student in an Organized Health Care Education/Training Program
DX: M62.82 Rhabdomyolysis (principal); N17.9 Acute kidney failure, unspecified; M33.92 Dermatopolymyositis, unspecified with myopathy; E66.9 Obesity, unspecified; Z68.38 Body mass index [BMI] 38.0-38.9, adult; F41.9 Anxiety disorder, unspecified; E87.6 Hypokalemia
CPT/HCPCS: 2NBP; 2NBSP; ERO; 36415; 80307; 81001; 82436; 87086; 93005; 93010; J1644